=== PATIENT | female | born 1955 | race Caucasian/White ===

== ENCOUNTER 2020-08-23 18:00 | Emergency (ER) | payer OTHER ==
[~2020-08-23] VITALS: Ht 157.5 cm; Wt 71.2 kg
[~2020-08-23 18:00] MED LIST: ANUCORT-HC25 MG RECTAL; APAP500 PO; COLACE100 MG PO; CYMBALTA60 MG PO; DIOVAN 80 MG TA80 M1 PO; LEVOCETIRIZINE D5 MG PO; LIPITOR10 MG PO; LOPERAMIDE 2 MG2 M1 PO; MOBIC15 MG PO; MUCINEX TA600 MG/TA2 PO; NORITATE60 GM; NYAMYC15 GM TOP; NYSTATIN 100,0015 G1 TP; PEPCID20 MG PO; THEREMS1 EAC1 PO; TUMS PO; VITAMIN D1000 UNI1 PO; VITAMINC500 PO
[2020-08-23 18:39] LABS: URINE BILIRUBIN NEGATIVE (Negative); URINE BLOOD TRACE (Negative); URINE CLARITY CLOUDY; URINE COLOR YELLOW; URINE GLUCOSE-RANDOM* NEGATIVE (Negative); URINE KETONES TRACE (Negative); URINE PROTEIN (DIPSTICK) TRACE (Negative); URINE SPECIFIC GRAVITY >= 1.030 (1.005-1.035); URINE UROBILINOGEN 0.2 E.U./dl (0.2-1.0)
[2020-08-23 18:40] LABS: URINE LEUKOCYTES-REFLEX 2+ (Negative); URINE NITRITE-REFLEX POSITIVE (Negative)
[2020-08-23 18:53] LABS: CASTS None Seen /LPF (None Seen); CRYSTALS None Seen /LPF (None Seen); SQUAMOUS 0-3 Few /LPF (0-3); URINE RBC 1-2 Rare /HPF (NONE SEEN)
[2020-08-23] MEDS ORDERED: CEPHALEXIN500 MG PO ×2 (19:31→20:07)
[2020-08-23 20:24] VITALS: BP 88/52
== END 2020-08-23 20:25 | disposition home or self-care (01) ==
LOC: ER 18:00
PROVIDERS: Emergency Medicine
DX: N39.0 Urinary tract infection, site not specified (principal); Z79.899 Other long term (current) drug therapy